=== PATIENT | male | born 1945 | race Caucasian/White ===

== ENCOUNTER 2019-06-02 09:01 | Emergency (ER) | payer MEDICARE, OTHER ==
[2019-06-02] MEDS ORDERED: Ketorolac 60 MG/2 ML SDV IM ONE (10:29)
[2019-06-02] MEDS ORDERED: Ketorolac 30 MG/ML SDV ONE (10:39)
--- NOTE | 2019-06-02 10:43 | EDM.PDOC ---
ED HPI GENERAL MEDICAL PROBLEM - General Stated Complaint: PAIN IN NECK AREA Time Seen by Provider: 06/02/19 10:35 Source of Information: Reports: Patient History Limitations: Reports: No Limitations - History of Present Illness Onset: Gradual Location: Reports: Neck Improves with: Reports: None Associated Symptoms: Denies: Fever/Chills Bilateral Neck Pain Score (Numeric/FACES): 5 - Related Data Allergies Allergy/AdvReac Type Severity Reaction Status Date / Time No Known Allergies Allergy Verified 06/02/19 10:40 ED ROS GENERAL - Review of Systems Review Of Systems: See Below Constitutional: Denies: Fever, Chills, Decreased Appetite HEENT: Reports: Ear Pain. Denies: Ear Discharge, Eye Discharge, Eye Pain, Nose Pain Respiratory: Denies: Shortness of Breath, Cough Cardiovascular: Reports: No Symptoms GI/Abdominal: Reports: No Symptoms Musculoskeletal: Reports: Muscle Pain. Denies: Back Pain Skin: Reports: No Symptoms Neurological: Reports: No Symptoms ED EXAM, GENERAL - Physical Exam Exam: See Below Exam Limited By: No Limitations General Appearance: Alert, WD/WN, No Apparent Distress Eye Exam: Bilateral Eye: PERRL Ears: Normal External Exam, Other (Right TM erythematous, injected, and full. Left TM pearly with positive light reflex) Ear Exam: Right Ear: TM Dull, TM Red, TM Bulging, Bilateral Ear: Auricle Normal , Canal Normal Nose: Normal Inspection Throat/Mouth: Normal Inspection, Normal Oropharynx Head: Atraumatic, Normocephalic Neck: Normal Inspection, Other (Tenderness with palaption of bilateral sternocleidomastoid muscles. No cervical spinal tenderness. ROM complete in flexion and extension, significantly limited in rotation.) Respiratory/Chest: No Respiratory Distress, Lungs Clear, Normal Breath Sounds, No Accessory Muscle Use Cardiovascular: Regular Rate, Rhythm Extremities: Normal Range of Motion Neurological: Alert, Oriented Psychiatric: Normal Affect Skin Exam: Warm, Dry Course - Vital Signs Last Recorded V/S: Last Vital Signs Temp 36.8 C 06/02/19 10:08 Pulse 65 06/02/19 10:08 Resp 16 06/02/19 10:08 BP 147/77 H 06/02/19 10:08 Pulse Ox 95 06/02/19 10:08 - Orders/Labs/Meds Meds: Medications Discontinued Medications Generic Name Dose Route Start Last Admin Trade Name Freq PRN Reason Stop Dose Admin Ketorolac Tromethamine 30 mg 06/02/19 10:29 Toradol IM 06/02/19 10:30 ONETIME ONE Ketorolac Tromethamine Confirm 06/02/19 10:39 Toradol Administered 06/02/19 10:40 Dose 30 mg .ROUTE .STK-MED ONE Departure - Departure Time of Disposition: 10:45 Disposition: Home, Self-Care 01 Condition: Good Clinical Impression: Otitis media, Torticollis - Discharge Information Instructions: Amoxicillin capsules or tablets, Otitis Media, Adult, Easy-to- Read Referrals: PCP,None [Primary Care Provider] - Additional Instructions: Discharge home. Received Toradol 30mg intramuscular in the ER. Amoxicillin 875mg 1 tablet 2 times a day for 10 days. Ibuprofen and Tylenol for pain as directed. Follow up with your primary provider as needed. Call or return to the ER if you have questions or concerns.
== END 2019-06-02 10:45 | disposition home or self-care (01) ==
LOC: LB.ED 09:01
DX: M43.6 Torticollis (principal); H66.91 Otitis media, unspecified, right ear
CPT/HCPCS: 96372; 99283; J1885